=== PATIENT | female | born 2000 | race Caucasian/White ===

== ENCOUNTER 2021-02-22 15:41 | Observation (INO) ==
[2021-02-22] MEDS ORDERED: Ringers Solution, Lactated 1,000 ML IVC SCH (17:30)
[2021-02-22 18:18] LABS: Basophils % 0.2 %; Eosinophils # 0.1 K/mcL (0.0-0.6); Hematocrit 42.8 % (35.3-44.9); Hemoglobin 14.3 g/dL (11.5-15.4); Immature Granulocytes % 0.4 % (0-4); Lymphocytes % 17.1 %; Mean Corpuscular HGB Conc 33.4 g/dL (31.6-35.5); Mean Corpuscular Hemoglobin 29.9 pg (28.0-33.3); Mean Corpuscular Volume 89.5 fL (83.0-100.0); Mean Platelet Volume 11.2 fL (9.4-12.4); Monocytes # 0.6 K/mcL (0.0-1.3); Monocytes % 5.1 %; Neutrophils # 9.1 K/mcL (1.6-8.9); Platelet Count 237 K/mcL (140-400); Red Blood Count 4.78 M/mcL (3.82-4.97); Red Cell Distribution Width 12.6 % (11.5-14.5); Segmented Neutrophils % 76.2 %; White Blood Count 11.9 K/mcL (4.3-11.1)
[2021-02-22 18:26] LABS: Protein/Creatinine Ratio,Urine 0.19 mg/mg (0.00-0.20)
[2021-02-22 18:38] LABS: Alanine Aminotransferase 7 Units/L (7-52); Aspartate Amino Transferase 11 Units/L (13-39); BUN/Creatinine Ratio 14 (6-26); Blood Urea Nitrogen 7 mg/dL (6-20); Lactate Dehydrogenase 128 Units/L (140-271); Uric Acid 5.8 mg/dL (2.3-7.6); eGFR For African Americans > 60; eGFR For Non-African Americans > 60
== END 2021-02-22 20:20 | disposition home or self-care (01) ==
LOC: 1NENULAB
PROVIDERS: ADMIT Advanced Practice Midwife; ATTEND Advanced Practice Midwife

== ENCOUNTER → 2021-02-24 18:23 | Observation (INO) ==
[~2021-02-24 18:23] MED LIST: Ringers Solution, Lactated 1,000 ML IVC SCH; Ringers Solution, Lactated 1,000 ML ONE
== END | disposition home or self-care (01) ==
LOC: 1NENULAB
PROVIDERS: ADMIT Advanced Practice Midwife; ATTEND Advanced Practice Midwife

== ENCOUNTER → 2021-03-01 07:31 | Observation (INO) ==
[2021-02-28 17:05] LABS: Basophils % 0.3 %; Eosinophils # 0.1 K/mcL (0.0-0.6); Eosinophils % 0.7 %; Hematocrit 40.6 % (35.3-44.9); Hemoglobin 13.6 g/dL (11.5-15.4); Immature Granulocytes % 0.5 % (0-4); Lymphocytes # 1.4 K/mcL (0.6-4.6); Lymphocytes % 11.6 %; Mean Corpuscular HGB Conc 33.5 g/dL (31.6-35.5); Mean Corpuscular Hemoglobin 29.9 pg (28.0-33.3); Mean Corpuscular Volume 89.2 fL (83.0-100.0); Monocytes # 0.5 K/mcL (0.0-1.3); Monocytes % 4.2 %; Neutrophils # 9.8 K/mcL (1.6-8.9); Platelet Count 265 K/mcL (140-400); Red Blood Count 4.55 M/mcL (3.82-4.97); Red Cell Distribution Width 12.5 % (11.5-14.5); Segmented Neutrophils % 82.7 %; White Blood Count 11.9 K/mcL (4.3-11.1)
[2021-02-28 17:11] LABS: Protein/Creatinine Ratio,Urine 0.21 mg/mg (0.00-0.20)
[2021-02-28 17:22] LABS: Alanine Aminotransferase 8 Units/L (7-52); Aspartate Amino Transferase 12 Units/L (13-39); BUN/Creatinine Ratio 13 (6-26); Blood Urea Nitrogen 7 mg/dL (6-20); Lactate Dehydrogenase 128 Units/L (140-271); Uric Acid 6.3 mg/dL (2.3-7.6); eGFR For African Americans > 60; eGFR For Non-African Americans > 60
[2021-02-28 17:46] LABS: Glucose 138 mg/dL (70-105)
[~2021-03-01 07:31] MED LIST changes: +*HR* Labetalol 20 MG/4 ML SYRINGE IVP ONE; +*HR* Labetalol 20 MG/4 ML SYRINGE IVP STA; +Betamethasone Acet/SodPhos 30 MG/5 ML VIAL IM SCH; -Ringers Solution, Lactated 1,000 ML ONE
== END | disposition home or self-care (01) ==
LOC: 1NENULAB
PROVIDERS: ADMIT Registered Nurse; ATTEND Registered Nurse

== ENCOUNTER → 2021-03-01 21:40 | Observation (INO) ==
[~2021-03-01 21:40] MED LIST changes: -*HR* Labetalol 20 MG/4 ML SYRINGE IVP ONE; -*HR* Labetalol 20 MG/4 ML SYRINGE IVP STA; -Ringers Solution, Lactated 1,000 ML IVC SCH
== END | disposition home or self-care (01) ==
LOC: 1NENULAB
PROVIDERS: ADMIT Advanced Practice Midwife; ATTEND Advanced Practice Midwife

== ENCOUNTER 2021-03-03 07:58 | Inpatient (IN) ==
[2021-03-03] MEDS ORDERED: *HR* Nalbuphine 10 MG/ML AMPUL IV PRN (08:03)
[2021-03-03] MEDS ORDERED: Azithromycin 500 MG in 0.9 % Sodium Chloride 250 ML IVPB PRN (08:03)
[2021-03-03] MEDS ORDERED: Famotidine 20 MG/2 ML VIAL IVP PRN (08:03)
[2021-03-03] MEDS ORDERED: Metoclopramide 10 MG/2 ML VIAL IVP PRN (08:03)
[2021-03-03] MEDS ORDERED: Naloxone 0.4 MG/ML INJ IVP PRN ×2 (08:03→13:07)
[2021-03-03] MEDS ORDERED: Penicillin G Potassium 5,000,000 UNIT in 0.9 % Sodium Chloride Mini Bag 100 ML IVPB ONE (08:12)
[2021-03-03 08:55] LABS: Basophils % 0.2 %; Eosinophils # 0.2 K/mcL (0.0-0.6); Eosinophils % 1.3 %; Hematocrit 37.5 % (35.3-44.9); Hemoglobin 12.5 g/dL (11.5-15.4); Immature Granulocytes % 0.5 % (0-4); Lymphocytes # 1.9 K/mcL (0.6-4.6); Lymphocytes % 14.5 %; Mean Corpuscular HGB Conc 33.3 g/dL (31.6-35.5); Mean Corpuscular Hemoglobin 29.9 pg (28.0-33.3); Mean Corpuscular Volume 89.7 fL (83.0-100.0); Mean Platelet Volume 9.8 fL (9.4-12.4); Monocytes # 0.6 K/mcL (0.0-1.3); Neutrophils # 10.1 K/mcL (1.6-8.9); Platelet Count 250 K/mcL (140-400); Red Blood Count 4.18 M/mcL (3.82-4.97); Red Cell Distribution Width 12.8 % (11.5-14.5); Segmented Neutrophils % 78.5 %; White Blood Count 12.8 K/mcL (4.3-11.1)
[2021-03-03] MEDS: Ringers Solution, Lactated 1,000 ML IVC SCH ×2 (09:13→13:42)
[2021-03-03 09:30] LABS: Bacteria,Urine Few per hpf (None-Few); Bilirubin,Urine Negative (Negative); Blood,Urine Negative (Negative); Clarity,Urine Turbid (Clear); Color,Urine Light-Yellow (Yellow); Glucose,Urine (UA) Normal (Normal); Ketones,Urine Negative (Negative); Leukocyte Esterase,Urine Large (Negative); Mucus,Urine Few per lpf (None-Few); Nitrite,Urine Negative (Negative); PH,Urine 6.5 pH Units (5.0-8.0); Protein,Urine Negative (Neg-Trace); RBC,Urine 0-3 per hpf (0-3); Specific Gravity,Urine 1.011 (1.010-1.025); Squamous Epithelial Cell,Urine Few per hpf (None-Few); Urobilinogen,Urine Normal (Normal); WBC,Urine 30-50 per hpf (0-3)
[2021-03-03] MEDS ORDERED: Oxytocin 20 units/ LR 1000 mL 20 UNIT/1,000 ML BAG IVC SCH (09:30)
[2021-03-03 09:33] LABS: Amphetamine Screen,Urine Negative ng/mL (Cutoff=1000); Barbiturate Screen,Urine Negative ng/mL (Cutoff=200); Benzodiazepines Screen,Urine Negative ng/mL (Cutoff=200); Cannabinoid Screen,Urine Negative ng/mL (Cutoff = 50); Cocaine Screen,Urine Negative ng/mL (Cutoff= 300); Opiate Screen,Urine Negative ng/mL (Cutoff=300); Phencyclidine Screen,Urine Negative ng/mL (Cutoff=25)
[2021-03-03 09:37] LABS: Protein/Creatinine Ratio,Urine 0.19 mg/mg (0.00-0.20)
[2021-03-03 10:16] LABS: Alanine Aminotransferase 6 Units/L (7-52); Aspartate Amino Transferase 14 Units/L (13-39); BUN/Creatinine Ratio 12 (6-26); Blood Urea Nitrogen 6 mg/dL (6-20); Lactate Dehydrogenase 167 Units/L (140-271); Uric Acid 6.3 mg/dL (2.3-7.6); eGFR For African Americans > 60; eGFR For Non-African Americans > 60
[2021-03-03] MEDS ORDERED: Ropivacaine/PF 0.2% 20 ML VIAL EP ONE (13:07)
[2021-03-03] MEDS ORDERED: Ondansetron 4 MG/2 ML VIAL IVP PRN (13:07)
[2021-03-03] MEDS ORDERED: EPHEDrine 50 MG/ML VIAL IVP PRN (13:07)
[2021-03-03] MEDS ORDERED: *HR* FentaNYL (PF) 100 MCG/2 ML VIAL EP ONE (13:07)
[2021-03-03] MEDS ORDERED: Epidural Premix (fent/bupiv) 110 ML EP ONE (13:09)
[2021-03-03] MEDS ORDERED: Ropivacaine/PF 0.2% 20 ML VIAL ONE ×3 (13:09→21:48)
[2021-03-03] MEDS: Epidural Premix (fent/bupiv) 110 ML EP SCH (13:41)
[2021-03-03] MEDS: Penicillin G Potassium 2,500,000 UNIT/105 ML MLS IVPB SCH ×3 (13:43→22:03)
[2021-03-03] MEDS ORDERED: *HR* FentaNYL (PF) 100 MCG/2 ML VIAL ONE ×2 (17:13→21:49)
[2021-03-03] MEDS: Ondansetron 4 MG/2 ML VIAL IVP PRN (17:50)
[2021-03-04] MEDS ORDERED: *HR* Labetalol 20 MG/4 ML SYRINGE IVP STA (00:48)
[2021-03-04] MEDS: Epidural Premix (fent/bupiv) 110 ML EP SCH (01:34)
[2021-03-04] MEDS: Penicillin G Potassium 2,500,000 UNIT/105 ML MLS IVPB SCH (02:07)
[2021-03-04] MEDS: Ondansetron 4 MG/2 ML VIAL IVP PRN (07:53)
[2021-03-04] MEDS ORDERED: Ibuprofen 600 MG TABLET PO PRN (14:43)
[2021-03-04] MEDS ORDERED: Acetaminophen 325 MG TABLET PO PRN (14:43)
[2021-03-04] MEDS ORDERED: Oxytocin 20 units/ LR 1000 mL 20 UNIT/1,000 ML BAG IVC SCH (14:43)
[2021-03-04 18:53] VITALS: BP 140/76
[2021-03-05] MEDS ORDERED: Prenatal Vit/FA 1 EACH TABLET PO SCH (09:00)
== END 2021-03-04 18:34 | disposition home or self-care (01) | DRG 807 ==
LOC: 1NENULAB 07:58
PROVIDERS: ADMIT Registered Nurse; ATTEND Registered Nurse